=== PATIENT | male | born 1950 | race Caucasian/White ===

== ENCOUNTER 2020-06-02 12:20 | Emergency (ER) | payer MEDICARE ==
[2020-06-02 13:11] LABS: HEMOGLOBIN 13.2 gm/dl (14.0-17.5); RED BLOOD COUNT 4.32 M/UL (4.20-5.50); WHITE BLOOD COUNT 5.5 K/UL (4.5-11.0)
[2020-06-02 13:28] LABS: BUN/CREATININE RATIO 39 (0-10)
[2020-06-02] MEDS ORDERED: ONDANSETRON ODT4 MG SL (16:29)
[2020-06-02] MEDS ORDERED: CEFUROXIME500 MG PO (16:29)
[2020-06-03] MEDS ORDERED: LISINOPRIL5 MG PO (23:34)
[2020-06-03] MEDS ORDERED: FENOFIBRATE145 MG PO (23:34)
[2020-06-03] MEDS ORDERED: DOXAZOSIN MESYLA8 MG PO (23:35)
[2020-06-03] MEDS ORDERED: CRESTOR 10 MG T10 MG GT (23:37)
== END 2020-06-02 16:56 | disposition home or self-care (01) ==
LOC: ER1 12:20
DX: Z53.8 Procedure and treatment not carried out for other reasons (principal)
CPT/HCPCS: 80053; 81001; 83690; 85025; 87086; 96374; 96375; 99284; J0696; J2270; J2405; Q9967; U0002

== ENCOUNTER 2020-06-03 15:10 | Inpatient (IN) | payer MEDICARE ==
[~2020-06-03] VITALS: Ht 185.4 cm; Wt 99.1 kg
[~2020-06-03 15:10] MED LIST: CEFUROXIME500 MG PO; ONDANSETRON ODT4 MG SL
[2020-06-03] MEDS ORDERED: FENOFIBRATE145 MG PO (23:34)
[2020-06-03] MEDS ORDERED: LISINOPRIL5 MG PO (23:34)
[2020-06-03] MEDS ORDERED: DOXAZOSIN MESYLA8 MG PO (23:35)
[2020-06-03] MEDS ORDERED: CRESTOR 10 MG T10 MG GT (23:37)
[2020-06-05] MEDS ORDERED: DOCUSATE SODIU100 MG PO (09:57)
[2020-06-05] MEDS ORDERED: PERCOCET 5/325 T1 EA PO (09:57)
== END 2020-06-06 14:09 | disposition home or self-care (01) | DRG 352 ==
LOC: M/S 20:25
PROVIDERS: ADMIT Surgery
PROC: 0YU50JZ Supplement Right Inguinal Region with Synthetic Substitute, Open Approach (ICD-10-PCS; principal; 2020-06-04 10:30)
DX: K40.30 Unilateral inguinal hernia, with obstruction, without gangrene, not specified as recurrent (principal); Z88.1 Allergy status to other antibiotic agents; Z88.0 Allergy status to penicillin; Z20.822 Contact with and (suspected) exposure to COVID-19; Z79.82 Long term (current) use of aspirin; Z79.899 Other long term (current) drug therapy; Z95.1 Presence of aortocoronary bypass graft; I25.10 Atherosclerotic heart disease of native coronary artery without angina pectoris
CPT/HCPCS: 80053; 81001; 83690; 85025; 87086; 96374; 96375; 99284; C1781; J0696; J1100; J2001; J2270; J2405; J2704; J3010; J3480; J7120; Q9967; U0002